=== PATIENT | female | born 1945 | race Caucasian/White ===

== ENCOUNTER 2016-10-20 14:28 | Emergency (ER) | payer MEDICARE, OTHER ==
[~2016-10-20 14:28] MED LIST: ALBUTEROL17 GM INH; ALLERGY RELIE15.8 ML; ANORO ELLIPTA1 EACH INH; ASPIRIN81 MG PO; ATENOLOL PO; CALCIUM + D 6001 TA1 PO; CALCIUM +D & M1 EACH PO; CARAFATE1 G; CATAFLAM50 MG PO; CELEXA PO; CENTRUM SILVER PO; CLOPIDOGREL75 MG PO; FAMCICLOVIR500 MG PO; FEROSUL325 ( 651 PO; FERROUS SULFATE PO; FOSAMAX PO; FOSAMAX70 MG PO; FUROSEMIDE40 MG PO; GLUCOSAMIN-CHO1 EACH PO; HYDROCODON-ACE1 EAC1 PO; LORATADINE PO; LORTAB 10-3251 EACH PO; METOPROLOL TAR25 MG DOB; MUCINEX DM1 TAB.SR . PO; MULTIVITAMIN1 UDCAP PO; NAPROSYN250 M1 PO; OMEPRAZOLE20 M2 PO; OSTEO BIFLEX PO; POTASSIUM GLUC500 MG PO; POTASSIUM PO; PRAVASTATIN SOD40 MG PO; PREMARIN PO; RANEXA500 MG PO; TENORMIN25 MG PO; VICODIN 5/500 T1 TAB PO; VOLTAREN75 MG PO; ZANTAC150 MG
== END 2016-10-20 15:49 | disposition home or self-care (01) ==
LOC: SED 14:28
DX: S81.811A Laceration without foreign body, right lower leg, initial encounter (principal); I10 Essential (primary) hypertension; Z23 Encounter for immunization; X58.XXXA Exposure to other specified factors, initial encounter; Y92.009 Unspecified place in unspecified non-institutional (private) residence as the place of occurrence of the external cause
CPT/HCPCS: 12002; 90471; 90715; 99283